=== PATIENT | female | born 1935 | race Caucasian/White ===

== ENCOUNTER 2017-04-02 16:47 | Emergency (ER) | payer MEDICARE ==
[~2017-04-02 16:47] MED LIST: ASA CHILDREN'S81 MG PO; ASTELIN NASAL S30 ML NS; COLACE-DPS100 MG PO; IMODIUM DPS2 MG PO; LOPRESSOR DPS50 MG PO; LOVENOX DP40 MG/0.4 SQ; MAALOX DPS30 ML PO; NORVASC5 MG PO; OCEAN NASAL MIS45 ML IN; PLAVIX75 MG PO; SENOKOT DPS8.6 MG PO; SURFAK240 MG PO; TYLENOL DPS325 MG PO; XANAX DPS0.5 MG PO; ZESTRIL DPS10 MG PO
--- NOTE | 2017-05-06 15:38 | ER ---
ADMIT: 04/02/2017 RM/LOC: ER [facility] MR#: [id number] [address] [id number] PRAKASHERIC [address] [place] [address] Emergency Room Report SEX: F AGE: 82 : 1935 DATE: 04/02/2017 SUBJECTIVE: An 82-year-old female, who comes to the Emergency Department because she was taking her blood pressure today and noticed it was elevated. She recently had been hospitalized for an episode of vertigo. She has no vertigo, has no headache; is only concerned about her high blood pressure. See T-sheet for remainder of history and physical. CBC and BMP are within normal parameters. She is given clonidine, which brought her pressure down to 134/77. The patient was discharged with a diagnosis of poorly controlled hypertension. Instructed to follow up with the primary doctor this week. Osito Villarreal MD/ nancy JOB #: [id number] CC: Umberto Matias MD, Attending Physician Dylan Dong MD, Family Physician
== END 2017-04-02 19:20 | disposition home or self-care (01) ==
LOC: ER 16:47
DX: I10 Essential (primary) hypertension (principal); Z86.73 Personal history of transient ischemic attack (TIA), and cerebral infarction without residual deficits; Z79.01 Long term (current) use of anticoagulants; Z79.899 Other long term (current) drug therapy; Z79.82 Long term (current) use of aspirin; Z88.0 Allergy status to penicillin; Z88.8 Allergy status to other drugs, medicaments and biological substances

== ENCOUNTER 2017-04-05 11:34 | Emergency (ER) | payer MEDICARE ==
--- NOTE | 2017-04-15 01:14 | ER ---
ADMIT: 04/05/2017 RM/LOC: ER [facility] MR#: [id number] [id number] [place], [place] [id number] ERIC PRAKASH [address] [facility] [address] [place] [address] Emergency Room Report SEX: F AGE: 82 : 1935 DATE: 04/05/2017 HISTORY: An 82-year-old with high blood pressure, feels like her ears are plugged, she has head pressure, frustrated with her elevated blood pressure and lack of followup from her PCP, not necessarily Dr. Dong, PCP from [place]. REVIEW OF SYSTEMS: Negative otherwise. PAST MEDICAL HISTORY: Increased cholesterol, CVA, head pain pressure. MEDICATIONS: 1. Plavix. 2. Losartan. 3. Atorvastatin. 4. Meclizine. 5. Aspirin. 6. Centrum. ALLERGIC: She is allergic to clarithromycin, Avelox, and Biaxin. PHYSICAL EXAMINATION: On examination, vitals within normal limits except the blood pressure was elevated at 188/93. She is pretty anxious about her blood pressure. Very pleasant. Her son is at bedside. Examination is totally negative. No edema noted in her legs. She has had a stroke in the past. We did do x-ray and basic labs; ischemic changes, nothing acute. CBC normal. Chemistry normal. She really did not want any labs done besides what we had. She was given clonidine, which she said lowered her blood pressure in the past, so she was provided with clonidine 0.1. She has an appointment to see Dr. Dong on Sunday. As I called the pharmacy with a prescription for her clonidine, I was notified that she is on metoprolol 50 mg, which would cause quite a change in her SA node, so I decided and did not write for her clonidine, however, I already have given her one in the ER which greatly to her satisfaction lowered her blood pressure. She will be following up with Dr. Dong. I did give her some Xanax to help her with the anxiety and advised not to be taking a blood pressure so often, she gets so anxious about it. CLINICAL IMPRESSION: 1. Hypertensive urgency. 2. Headache, acute, with a negative CT scan. OT[place] / Pepe Stern MD / modl JOB #: [id number] CC: Pepe Stern MD, Attending Physician ADMIT: 04/05/2017 RM/LOC: ER [facility] MR#: [id number] [address] [place] [id number] [address] PR[address] [facility] [place] [address] Emergency Room Report SEX: F AGE: 82 : 1935 Dylan Dong MD, Family Physician
== END 2017-04-05 14:45 | disposition home or self-care (01) ==
LOC: ER 11:34
DX: I16.0 Hypertensive urgency (principal); R51 Headache; E78.00 Pure hypercholesterolemia, unspecified; Z79.82 Long term (current) use of aspirin; Z88.8 Allergy status to other drugs, medicaments and biological substances; Z88.1 Allergy status to other antibiotic agents